=== PATIENT | male | born 1965 | race Caucasian/White ===

== ENCOUNTER 2016-06-30 14:48 | Emergency (ER) | payer OTHER ==
[2016-06-30 16:08] VITALS: BP 128/73
[2016-06-30] MEDS ORDERED: Ibuprofen TAB* 600 MG PO ONE (16:25)
--- NOTE | 2016-06-30 16:46 | RAD ---
Indication: Index finger injury 3 views of left index finger demonstrates no fracture or dislocation. No other bone or joint abnormality is identified. IMPRESSION: No fracture of the left index finger is noted.
--- NOTE | 2016-06-30 16:53 | UC ---
Hand/Wrist HPI - HPI Summary HPI Summary: 51 yo male [place] got his left index finger caught in a 300 lb mcc door Td up to date he is right handed occurred about 2 PM - History Of Current Complaint Chief Complaint: UCLaceration Stated Complaint: LEFT HAND POINTER FINGER INJURY (WC) Time Seen by Provider: 06/30/16 16:22 Onset/Duration: Sudden Onset Severity Initially: Moderate Severity Currently: Moderate Pain Intensity: 5 Pain Scale Used: 0-10 Numeric Character Of Pain: Aching, Throbbing Aggravating Factor(s): Lifting Alleviating: Nothing, Elevation Associated Signs And Symptoms: Positive: Swelling Related History: Occupational Injury, Dominant Hand Right - Allergies/Home Medications Allergies/Adverse Reactions: Allergies Allergy/AdvReac Type Severity Reaction Status Date / Time Amoxicillin Allergy Rash Verified 06/30/16 16:00 Home Medications: Home Medications Bisoprolol & Hydrochlorothiazi [Ziac 10-6.25 mg-] 1 tab PO DAILY 06/30/16 [ History Confirmed 06/30/16] Colesevelam HCl [Welchol] 3 tab PO BID 06/30/16 [History Confirmed 06/30/16] Fenofibrate [Triglide] 160 mg PO DAILY 06/30/16 [History Confirmed 06/30/16] Omeprazole CAP* [Prilosec CAP* 20 MG] 40 mg PO DAILY 06/30/16 [History Confirmed 06/30/16] amLODIPine/Benazepril 01/28(NF [Lotrel 01/28(NF)] 1 cap PO DAILY 06/30/16 [ History Confirmed 06/30/16] metFORMIN* [Glucophage 1000 MG TAB *] 1,000 mg PO BID 06/30/16 [History Confirmed 06/30/16] rOPINIRole TAB* [Requip TAB*] 1 mg PO BEDTIME 06/30/16 [History Confirmed ] PMH/Surg Hx/FS Hx/Imm Hx Previously Healthy: Yes Endocrine History Of: Reports: Diabetes Cardiovascular History Of: Reports: Hypertension - Surgical History Surgical History: Yes Surgery Procedure, Year, and Place: appy @ age 12, left shoulder surgery 05/2015 - Family History Known Family History: Positive: Cardiac Disease, Hypertension, Diabetes - Social History Alcohol Use: None Substance Use Type: None Smoking Status (MU): Never Smoked Tobacco Type: Smokeless Tobacco Amount Used/How Often: 1 can a day Review of Systems Constitutional: Negative Skin: Bruising Eyes: Negative ENT: Negative Respiratory: Negative Cardiovascular: Negative Gastrointestinal: Negative Genitourinary: Negative Motor: Negative Neurovascular: Negative Musculoskeletal: Negative Neurological: Negative Psychological: Negative All Other Systems Reviewed And Are Negative: Yes Physical Exam Triage Information Reviewed: Yes Appearance: Well-Appearing, No Pain Distress, Well-Nourished Vital Signs: Initial Vital Signs Temp 98.8 F 06/30/16 16:01 Pulse 68 06/30/16 16:01 Resp 16 06/30/16 16:01 BP 128/73 06/30/16 16:01 Pulse Ox 100 06/30/16 16:01 Vital Signs Reviewed: Yes Eyes: Positive: Conjunctiva Clear ENT: Positive: Hearing grossly normal. Negative: Nasal congestion, Nasal drainage, Trismus, Muffled/hoarse voice Neck: Positive: Nontender, No Lymphadenopathy Respiratory: Positive: Lungs clear, Normal breath sounds, No respiratory distress, No accessory muscle use Cardiovascular: Positive: RRR, No Murmur Musculoskeletal: Positive: Edema @ - LIF/DP Neurological Exam: Normal Neurological: Positive: Alert Psychological Exam: Normal Skin Exam: Other - see image Procedures - Laceration/Wound Repair 1 Location: Other - left index finger Description: Linear - 1 cm long/1mm wide/2mm deep Betadine Prep?: No Irrigated w/ Saline (ccs): 100 Laceration/Wound Explored: clean Closure: Skin Adhesive, SteriStrips Layer Closure?: No Sterile Dressing Applied?: Yes Hand/Wrist Course/Dx - Differential Dx/Diagnosis Provider Diagnoses: left index finger contusion. left index finger laceration Discharge - Discharge Plan Condition: Stable Disposition: HOME Patient Education Materials: Skin Adhesive Care (ED), Steristrips (ED) Referrals: Non Staff,Doctor [Primary Care Provider] - Additional Instructions: call for any questions return for any problems Images Hands: 1 - 1 cm lac/2mmdeep/ 1 mm wide 2 - 25 % subungual hematoma
== END 2016-06-30 17:33 | disposition home or self-care (01) ==
LOC: UCCORT 14:48
DX: S60.022A Contusion of left index finger without damage to nail, initial encounter (principal); S61.211A Laceration without foreign body of left index finger without damage to nail, initial encounter; W23.0XXA Caught, crushed, jammed, or pinched between moving objects, initial encounter; Y93.89 Activity, other specified; Y92.89 Other specified places as the place of occurrence of the external cause; Y99.0 Civilian activity done for income or pay; Z88.1 Allergy status to other antibiotic agents; E11.9 Type 2 diabetes mellitus without complications; Z79.84 Long term (current) use of oral hypoglycemic drugs; I10 Essential (primary) hypertension; F17.220 Nicotine dependence, chewing tobacco, uncomplicated
CPT/HCPCS: 12001; 12020; 73140; 99201; A9270-GY; G0463